=== PATIENT | female | born 2000 | race African-American/Black ===

== ENCOUNTER 2019-12-05 16:13 | Emergency (ER) | payer SELFPAY ==
[~2019-12-05] VITALS: Ht 170.2 cm; Wt 62.7 kg
[2019-12-05 17:07] LABS: BILIRUBIN,URINE NEGATIVE (NEG); CLARITY,URINE CLEAR; COLOR,URINE YELLOW; NITRITE,URINE NEGATIVE (NEG); PH,URINE 5.5 (<5.0-8.0); PROTEIN,URINE 30 mg/dL (NEG-TRACE); UROBILINOGEN,URINE 0.2 mg/dL (0.2 mg/dL)
--- NOTE | 2019-12-05 17:08 | PHYS DOC ---
General Adult EDM: Chief Complaint: VAGINAL BLEEDING HPI: HPI: Patient is a 19 year old female who presents with states her last menstrual period was October 26, 2019. States this is her first . She does not have an OB doctor. She states that for the last 2 days she has had intermittent cramping in her low mid abdomen that will come and go with vaginal spotting with wiping only. She denies any abnormal vaginal discharge or concerns for sexually transmitted diseases. She states she does not want to be treated for sexually transmitted diseases today. Patient denies nausea, vomiting, diarrhea, fever, back pain, dysuria symptoms, headache, chest pain, shortness of breath, cough, dizziness. Patient currently has no pain at this time. Review of Systems: Review of Systems: Constitutional: Denies fever or chills. [] Eyes: Denies change in visual acuity. [] HENT: Denies nasal congestion or sore throat. [] Respiratory: Denies cough or shortness of breath. [] Cardiovascular: Denies chest pain or edema. [] GI: Intermittent low cramping abdominal pain, denies nausea, vomiting, bloody stools or diarrhea. [] : Denies dysuria. Vaginal spotting with wiping after using the restroom only [] Musculoskeletal: Denies back pain or joint pain. [] Integument: Denies rash. [] Neurologic: Denies headache, focal weakness or sensory changes. [] Endocrine: Denies polyuria or polydipsia. [] Lymphatic: Denies swollen glands. [] Psychiatric: Denies depression or anxiety. [] Heart Score: Risk Factors: Risk Factors: DM, Current or recent (<one month) smoker, HTN, HLP, family history of CAD, obesity. Risk Scores: Score 0 - 3: 2.5% MACE over next 6 weeks - Discharge Home Score 4 - 6: 20.3% MACE over next 6 weeks - Admit for Clinical Observation Score 7 - 10: 72.7% MACE over next 6 weeks - Early Invasive Strategies Physical Exam: PE: Constitutional: Well developed, well nourished, no acute distress, non-toxic appearance. [] HENT: Normocephalic, atraumatic, bilateral external ears normal, oropharynx moist, no oral exudates, nose normal. [] Eyes: PERRLA, EOMI, conjunctiva normal, no discharge. [] Neck: Normal range of motion, no tenderness, supple, no stridor. [] Cardiovascular:Heart rate regular rhythm, no murmur [] Lungs & Thorax: Bilateral breath sounds clear to auscultation [] Abdomen: Bowel sounds normal, soft, no tenderness, no masses, no pulsatile masses. [] Skin: Warm, dry, no erythema, no rash. [] Back: No tenderness, no CVA tenderness. [] Extremities: No tenderness, no cyanosis, no clubbing, ROM intact, no edema. [] Neurologic: Alert and oriented X 3, normal motor function, normal sensory function, no focal deficits noted. [] Psychologic: Affect normal, judgement normal, mood normal. Normal physical exam [] Current Patient Data: Labs: Laboratory Tests Test 12/05/19 17:00 POC Urine HCG, Qualitative Hcg positive (Negative) EKG: EKG: [] Radiology/Procedures: Radiology/Procedures: [] Impression: [facility] [address] [place], [place] [id number] IMAGING REPORT Signed PATIENT: TIMOTHY COSME ACCOUNT: [id number] : 2000 LOCATION: ER AGE: 19 SEX: F EXAM STATUS: REG ER ORD. PHYSICIAN: MAYANK AVILES APRN REASON: vag bleed, abd pain, PROCEDURE: OB <14 WKS W/TV Exam: Ultrasound OB less than 14 weeks Indication: Vaginal bleeding, abdominal pain and Technique: Real-time grayscale and color Doppler images of the pelvis were obtained by the department plaster die maker. Comparisons: None FINDINGS: Uterus measures 9 x 6 x 4 cm. Within the endometrium there is a gestational sac with yolk sac. pole is not identified. Right ovary measures 2.5 x 1.5 x 1.5 cm. Left ovary measures 3.4 x 1.7 x 1.7 cm. Vascular flow identified within the ovaries bilaterally. No free fluid. IMPRESSION: 1. Gestational sac with internal yolk sac. No pole identified. Differential considerations include an early IUP versus failed IUP. Recommend correlation with serial beta hCG measurements and short-term follow-up ultrasound. 2. Normal sonographic appearance of the ovaries. Electronically signed by: Jocelin Alvares MD (12/05/2019 5:54 PM) [id number] DICTATED and SIGNED BY: JOCELIN ALVARES MD DATE: 12/05/191753 Course & Med Decision Making: Course & Med Decision Making Pertinent Labs and Imaging studies reviewed. (See chart for details) Abdomen soft and nontender. Alert and oriented x4. Ambulatory with a steady gait. I have ordered a wet prep and chlamydia gonorrhea she has not had this done and has not seen an OB doctor. Pelvic Exam: Custodial Operations Manager present Abdomen: Nontender External Genitalia: Normal Skin Speculum: Normal vaginal mucosa, white cervical discharge Bimanual: No adnexal masses or tenderness, No CMT [] Dragon Disclaimer: Dragon Disclaimer: This electronic medical record was generated, in whole or in part, using a voice recognition dictation system. Departure Departure Impression: Primary Impression: UTI (urinary tract infection) Qualified Codes: N39.0 - Urinary tract infection, site not specified Additional Impression: Abdominal pain affecting Disposition: 01 HOME, SELF-CARE Condition: STABLE Referrals: UNKNOWN PCP NAME (PCP) LINK RILEY Jr, MD Patient Instructions: ABCs of , - Urinary Tract Infection Additional Instructions: FOLLOW UP WITH A OB DOCTOR SOON POSSIBLE. DRINK PLENTY OF FLUIDS. TAKE MEDICATION WITH FOOD AND PRESCRIBED. Scripts Cephalexin (KEFLEX) 500 Mg Capsule 1 CAP PO BID for 7 Days, #14 CAP 0 Refills Prov: MAYANK AVILES APRN 12/05/19 Justicifation of Admission Dx: Justifications for Admission: Justification of Admission Dx: N/A MAYANK AVILES APRN Dec 05, 2019 17:08
[2019-12-05 17:22] LABS: BACTERIA,URINE MANY /HPF (0-FEW); RBC,URINE 0 /HPF (0-2); SQUAMOUS EPITHELIAL CELL,UR MANY /LPF
[2019-12-05 17:43] LABS: BASO % 1 % (0-3); EOS # 0.1 x10^3/uL (0.0-0.7); EOS % 1 % (0-3); HEMOGLOBIN 14.1 g/dL (12.0-15.5); LYMPH % 36 % (24-48); MEAN CORPUSCULAR HEMOGLOBIN 32 pg (25-35); MEAN CORPUSCULAR HGB CONC 35 g/dL (31-37); MEAN CORPUSCULAR VOLUME 90 fL (79-100); MONO # 0.6 x10^3/uL (0.0-1.1); MONO % 10 % (0-9); NEUT % 52 % (31-73); PLATELET COUNT 256 x10^3/uL (140-400); RED BLOOD COUNT 4.45 x10^6/uL (3.50-5.40); RED CELL DISTRIBUTION WIDTH 12.7 % (11.5-14.5); WHITE BLOOD COUNT 5.7 x10^3/uL (4.0-11.0)
[2019-12-05 17:50] LABS: PROTHROMBIN TIME PATIENT 13.5 SEC (11.7-14.0)
[2019-12-05 17:56] LABS: CREATININE 0.8 mg/dL (0.6-1.0); GFR 109.6; POTASSIUM 3.8 mmol/L (3.5-5.1)
--- NOTE | 2019-12-05 17:58 | RAD ---
Exam: Ultrasound OB less than 14 weeks Indication: Vaginal bleeding, abdominal pain and Technique: Real-time grayscale and color Doppler images of the pelvis were obtained by the department ring striker. Comparisons: None FINDINGS: Uterus measures 9 x 6 x 4 cm. Within the endometrium there is a gestational sac with yolk sac. pole is not identified. Right ovary measures 2.5 x 1.5 x 1.5 cm. Left ovary measures 3.4 x 1.7 x 1.7 cm. Vascular flow identified within the ovaries bilaterally. No free fluid. IMPRESSION: 1. Gestational sac with internal yolk sac. No pole identified. Differential considerations include an early IUP versus failed IUP. Recommend correlation with serial beta hCG measurements and short-term follow-up ultrasound. 2. Normal sonographic appearance of the ovaries. Electronically signed by: Jocelin Shirley MD (12/05/2019 5:54 PM) [id number]
[2019-12-05 18:02] LABS: ALBUMIN 3.8 g/dL (3.4-5.0); TOTAL BILIRUBIN 0.3 mg/dL (0.2-1.0); TOTAL PROTEIN 7.6 g/dL (6.4-8.2)
[2019-12-05] MEDS ORDERED: CEPH-264 PO (19:12)
[2019-12-05 19:20] VITALS: BP 116/70
[2019-12-06 19:10] LABS: GC PROBE Negative (Negative)
== END 2019-12-05 19:25 | disposition home or self-care (01) ==
LOC: ER 16:13
DX: O23.41 Unspecified infection of urinary tract in pregnancy, first trimester (principal); R10.9 Unspecified abdominal pain; Z3A.01 Less than 8 weeks gestation of pregnancy
CPT/HCPCS: 36415; 76801; 76817; 80053; 81001; 81025; 84702; 85025; 85610; 86850; 86900; 86901; 87086; 87491; 87591; 99285; Q0111

== ENCOUNTER 2020-03-25 03:01 | Observation (INO) | payer OTHER ==
[~2020-03-25 03:01] MED LIST: CEPH-264 PO
[2020-03-25] MEDS ORDERED: ONDANSETRON PF 4 MG/2 ML VIAL. IVP PRN (03:30)
[2020-03-25] MEDS ORDERED: IV RINGERS,LACTATED 1000ML 1,000 ML IV PRN (03:30)
[2020-03-25] MEDS ORDERED: ACETAMINOPHEN 325 MG TABLET. PO PRN (03:30)
[2020-03-25 03:43] LABS: BILIRUBIN,URINE NEGATIVE (NEG); CLARITY,URINE CLEAR; COLOR,URINE YELLOW; NITRITE,URINE NEGATIVE (NEG); PH,URINE 6.5 (<5.0-8.0); PROTEIN,URINE NEGATIVE (NEG-TRACE)
[2020-03-25 03:48] LABS: BARBITURATES NEG (NEG); BENZODIAZEPINES NEG (NEG); CANNABINOIDS NEG (NEG); COCAINE NEG (NEG); METHADONE NEG (NEG); OPIATES NEG (NEG); PHENCYCLIDINE NEG (NEG)
[2020-03-25 03:50] LABS: AMPHETAMINE/METHAMPHETAMINE NEG (NEG)
[2020-03-25 03:52] LABS: BACTERIA,URINE 0 /HPF (0-FEW); RBC,URINE OCC /HPF (0-2); WBC,URINE OCC /HPF (0-4)
== END 2020-03-25 04:30 | disposition home or self-care (01) ==
LOC: 3 SO LND 03:01
PROVIDERS: ADMIT Obstetrics & Gynecology; ATTEND Obstetrics & Gynecology
DX: O26.852 Spotting complicating pregnancy, second trimester (principal); Z3A.21 21 weeks gestation of pregnancy; Z79.899 Other long term (current) drug therapy
CPT/HCPCS: 80307; 81001; G0378; G0379; 59025

== ENCOUNTER → 2020-03-26 | Outpatient (CLI) | payer OTHER ==
--- NOTE | 2020-03-26 10:19 | RAD ---
EXAM: Obstetrics sonogram. HISTORY: Uterine size and dates discrepancy. TECHNIQUE: Sonographic imaging of a gravid uterus was performed. COMPARISON: 12/05/2019. FINDINGS: There is a single intrauterine fetus in breech presentation with a normal heart rate of 144 bpm. There is body motion. There is a three-vessel umbilical cord with normal insertion. The stomach, kidneys, bladder, spine, facial profile, extremities and heart are unremarkable. The cervix is closed and measures 4.4 cm in length. There is a posterior fundal placenta without evidence of placenta previa. The amniotic fluid index is normal at 10.6 cm. The biparietal diameter is 4.89 cm, corresponding with 20 weeks and 6 days. The head circumference is 18.32 cm, corresponding with 20 weeks and 5 days. The abdominal circumference is 15.94 cm, corresponding with 21 weeks and 0 days. The femoral length is 3.46 cm, corresponding with 20 weeks and 6 days. The estimated gestational age based on combined ultrasound measurements is 20 weeks and 6 days and the estimated weight is 389 g. IMPRESSION: 1. Single intrauterine fetus with an estimated gestational age patient also measurements of 20 weeks and 6 days. The estimated gestational age based on a sonogram performed 12/05/2019 is 21 weeks and 6 days. 2. Unremarkable anatomy survey. Electronically signed by: Jaja Chris MD (03/26/2020 10:16 AM) [facility]
== END ==
LOC: US 09:05
PROVIDERS: ATTEND Obstetrics & Gynecology
DX: O26.842 Uterine size-date discrepancy, second trimester (principal); Z3A.20 20 weeks gestation of pregnancy
CPT/HCPCS: 76805

== ENCOUNTER → 2020-05-01 | Outpatient (CLI) | payer OTHER | LOC: LAB 09:16 | PROVIDERS: ATTEND Obstetrics & Gynecology | DX: O09.90 Supervision of high risk pregnancy, unspecified, unspecified trimester (principal); Z3A.26 26 weeks gestation of pregnancy | CPT/HCPCS: 36415; 82950 ==

== ENCOUNTER → 2020-12-26 | Outpatient (CLI) | payer OTHER ==
[~2020-12-26] MED LIST changes: +LORA10TA68 PO; +OXYC1TAB15 PO
== END ==
LOC: LAB 10:44
PROVIDERS: ATTEND Obstetrics & Gynecology
DX: Z01.812 Encounter for preprocedural laboratory examination (principal); Z20.822 Contact with and (suspected) exposure to COVID-19
CPT/HCPCS: U0003

== ENCOUNTER 2020-12-27 08:53 | Day surgery (SDC) | payer OTHER ==
[~2020-12-27] VITALS: Ht 170.2 cm; Wt 60.3 kg
[~2020-12-27 08:53] MED LIST changes: +HYDROmorphone 2 MG/ML VIAL IVP PRN; +IV RINGERS,LACTATED 1000ML 1,000 ML IV SCH; +MORPHINE SULFATE 2 MG/ML INJ. IVP PRN; -OXYC1TAB15 PO; +PROCHLORPERAZINE 10 MG/2 ML VIAL. IVP PRN; +ceFAZolin SODIUM IV Push 1 GM VIAL. IVP PRN; +fentaNYL PF VIAL 100 MCG/2 ML VIAL IVP PRN
[2020-12-27 09:24] VITALS: BP 110/61
[2020-12-27] MEDS ORDERED: fentaNYL PF VIAL 100 MCG/2 ML VIAL ONE (09:56)
[2020-12-27] MEDS ORDERED: PROPOFOL 10 MG/ML (20ML) VIAL. IV ONE (09:56)
[2020-12-27] MEDS ORDERED: LIDOCAINE 2% PF 5 ML VIAL. ONE (09:56)
[2020-12-27] MEDS ORDERED: MIDAZOLAM HCL/PF 2 MG/2 ML VIAL. ONE (09:56)
[2020-12-27] MEDS ORDERED: FERRIC SUBSULFATE 8 ML SOL.W.APPL TP ONE (10:40)
[2020-12-27] MEDS ORDERED: LIDOCAINE 1%/EPI 1:100,000 20 ML VIAL. ONE (10:40)
[2020-12-27] MEDS ORDERED: ONDANSETRON PF 4 MG/2 ML VIAL. ONE (11:01)
[2020-12-27] MEDS ORDERED: DEXAMETHASONE SOD PHOS 4 MG/ML VIAL ONE (11:01)
[2020-12-27] MEDS ORDERED: KETOROLAC 30 MG/ML VIAL. ONE (11:01)
[2020-12-27] MEDS ORDERED: SEVOFLURANE 31 TO 60 MINUTES. IH ONE (11:08)
[2020-12-27] MEDS ORDERED: GLYCOPYRROLATE 1 MG/5 ML VIAL. ONE (11:13)
--- NOTE | 2020-12-27 11:31 | PDOC ---
BRIEF OPERATIVE NOTE Date: Dec 27, 2020 Pre-Op Diagnosis LORETA 1 Post-Op Diagnosis Same Procedure Performed Cold Knife Cone Biopsy Surgeon Dr. Nicole Anesthesia Type: General Blood Loss 10 ml Specimens Obtained cervical cone biopsy Findings cervical dysplasia Complications none Operative Note see dictation LINK NICOLE Jr, MD Dec 27, 2020 11:30
[2020-12-27] MEDS ORDERED: OXYC1TAB15 PO (11:32)
--- NOTE | 2020-12-27 11:33 | DISCH ---
DISCHARGE INSTRUCTIONS Condition on Discharge Condition on Discharge: Stable Activity After Discharge Activity Instructions for Disc: Activity as tolerated Lifting Instructions after Dis: No heavy lifting Driving Instructions after Dis: Do not drive today Diet after Discharge Diet after Discharge: Regular Contacting the DRMargarette after DC Call your doctor for: Concerns you may have Follow-Up Follow up with: Dr. Nicole in 1 week. LINK NICOLE Jr, MD Dec 27, 2020 11:33
[2020-12-27 12:15] VITALS: BP 135/83
--- NOTE | 2020-12-27 12:25 | OP ---
DATE OF SURGERY: 12/27/2020 PREOPERATIVE DIAGNOSIS: Cervical intraepithelial neoplasia 1. POSTOPERATIVE DIAGNOSIS: Cervical intraepithelial neoplasia 1. PROCEDURE: Cervical cone biopsy via cold knife cone biopsy. SURGEON: Dr. Nicole. ANESTHESIA: GETA. ESTIMATED BLOOD LOSS: 10 mL COMPLICATIONS: None. FINDINGS: Cervical dysplasia. SUMMARY: A 20-year-old female with LORETA 1 on colposcopic biopsy requiring cervical cone biopsy. She was counseled on the risks, benefits and expectations and voiced clear understanding to proceed. DESCRIPTION OF PROCEDURE: The patient was taken to surgery suite and placed in dorsal lithotomy position, was prepped with Betadine solution and draped in a sterile fashion. After adequate anesthesia, weighted speculum and curved Calvin were placed vaginally. A 2-0 Vicryl suture was placed at the 3 o'clock and 9 o'clock position to help stabilize the cervix. Cervix was then injected with 1% lidocaine with epinephrine in a circumferential manner. Cervical cone biopsy was performed with 45-degree angle scalpel in which an anterior and posterior lip of the cervix was removed. The remaining cervix was cauterized with Bovie cautery. Monsel's solution was also placed for better hemostasis. The weighted speculum and curved Calvin was then removed. The patient tolerated the procedure well and was taken to recovery room in stable condition. Sponge and needle count correct x 3. RAMA/MASTER DR: RAMA/camille TID: [id number]
[2020-12-27] MEDS ORDERED: oxyCODONE/APAP 5/325 1 TAB TABLET PO ONE (12:30)
== END 2020-12-27 13:22 | disposition home or self-care (01) ==
LOC: SURG 08:53
PROVIDERS: ATTEND Obstetrics & Gynecology
DX: N87.0 Mild cervical dysplasia (principal); J45.909 Unspecified asthma, uncomplicated; Z98.890 Other specified postprocedural states
CPT/HCPCS: 57520; 81025; A4930; J0690; J1100; J1885; J2250; J2405; J2704; J3010; J3490